=== PATIENT | female | born 1975 | race Two or more races ===

== ENCOUNTER 2021-01-09 12:25 | Emergency (ER) | payer MEDICAID ==
[~2021-01-09] VITALS: Ht 160 cm; Wt 58.1 kg
--- NOTE | 2021-01-09 12:27 | NUR ---
TO ER BED 13, C/O THROAT TIGHTNESS AND TINGLING SENSATION ON FINGERS OF BOTH ARMS, ATTACHED TO MONITOR, CHANGED TO GOWN, AWAITING MD TA
--- NOTE | 2021-01-09 12:49 | NUR ---
PT SEEN AND EXAMINED BY .
[2021-01-09] MEDS ORDERED: IBUPROFEN 600 MG TABLET ONE (12:51)
[2021-01-09] MEDS ORDERED: IBUPROFEN 600 MG TABLET PO ONE (13:00)
[2021-01-09] MEDS ORDERED: IV NS 0.9% 1,000 ML BAG IV ONE (13:00)
[2021-01-09 13:34] LABS: BASOPHILS % (AUTO) 0.6 % (0.0-2.0); EOSINOPHILS % (AUTO) 1.2 % (0.0-6.0); HEMATOCRIT 39 % (33-45); HEMOGLOBIN 13.2 g/dL (11.5-14.8); LYMPHOCYTES % (AUTO) 28.4 % (20.0-44.0); MEAN CORPUSCULAR HGB CONC 34 g/dl (31.0-36.0); MEAN CORPUSCULAR VOLUME 92 fL (82-100); MONOCYTES # (AUTO) 0.4 K/uL (0.1-1.30); MONOCYTES % (AUTO) 5.8 % (2.0-12.0); NEUTROPHILS # (AUTO) 4.4 K/uL (1.8-8.9); PLATELET COUNT (AUTO) 274 K/uL (150-450); RED BLOOD CELL COUNT(AUTO) 4.26 MIL/uL (4.0-5.2); WHITE BLOOD COUNT (AUTO) 6.9 K/uL (4.3-11.0)
[2021-01-09 13:43] LABS: CALCIUM, SERUM 9.2 mg/dL (8.5-10.1); CREATININE 0.8 mg/dL (0.6-1.3); POTASSIUM 3.5 mmol/L (3.5-5.1)
--- NOTE | 2021-01-09 13:50 | NUR ---
TAKEN TO CT
[2021-01-09] MEDS ORDERED: IBUP-1957 PO (14:07)
[2021-01-09 14:15] VITALS: BP 127/71
== END 2021-01-09 14:16 | disposition home or self-care (01) ==
LOC: ER 12:30
DX: M79.10 Myalgia, unspecified site (principal); T50.B95A Adverse effect of other viral vaccines, initial encounter; Z88.0 Allergy status to penicillin; Y92.89 Other specified places as the place of occurrence of the external cause
CPT/HCPCS: 36415; 70450; 71045; 80048; 85025; 93005; 96360; 99285; J7030